=== PATIENT | female | born 1955 | race Two or more races ===

== ENCOUNTER 2025-07-21 04:50 | Inpatient (IN) | payer BC, OTHER ==
[~2025-07-21] VITALS: Ht 160 cm; Wt 54.4 kg
--- NOTE | 2025-07-21 05:12 | NUR ---
[id number] FR HOME W CC OF ABDL PAIN, DISTENTION AND DIARRHEA X 2 WEEKS,+N/V AND HEADACHE. 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 PATIENT IS AOX4, ABLE TO MAKE NEEDS KNOWN. PLACED COMFORTABLY IN BED. WAITING FOR MD MARCIAL
--- NOTE | 2025-07-21 05:15 | NUR ---
SEEN BY DR BADILLO AT BEDSIDE
[2025-07-21] MEDS: IV NS 0.9% 1,000 ML BAG IV ONE ×2 (05:30→08:38)
[2025-07-21] MEDS ORDERED: PANTOPRAZOLE 40 MG VIAL ONE (05:42)
[2025-07-21] MEDS ORDERED: ONDANSETRON HCL/PF 4 MG/2 ML VIAL ONE (05:42)
--- NOTE | 2025-07-21 06:15 | NUR ---
PT HARD STICK; NOT ABLE TO DRAW LABS WILL HAVE ANOTHER NURSE TRY. LAB AWARE
--- NOTE | 2025-07-21 06:30 | NUR ---
called house sup for mid line insertion
--- NOTE | 2025-07-21 06:40 | NUR ---
MID LINE NURSE AT BED SIDE
[2025-07-21 06:43] LABS: PLATELET COUNT (AUTO) 194 K/uL (150-450); RED BLOOD CELL COUNT(AUTO) 4.66 MIL/uL (4.0-5.2); RED CELL DISTRIBUTION WIDTH 16.2 % (11.5-15.0); WHITE BLOOD COUNT (AUTO) 7.3 K/uL (4.3-11.0)
[2025-07-21] MEDS: PANTOPRAZOLE 40 MG VIAL IV ONE (06:55)
[2025-07-21] MEDS: ONDANSETRON HCL/PF 4 MG/2 ML VIAL IV ONE (06:56)
--- NOTE | 2025-07-21 06:56 | NUR ---
ELIZABETH #18G MIDLINE INSERTED BY KAREN DELGADO BLOOD COLLECTED AND SENT TO LAB
--- NOTE | 2025-07-21 07:10 | NUR ---
PT TAKEN TO CT
[2025-07-21 07:15] LABS: CALCIUM, SERUM 8.9 mg/dL (8.5-10.1); CREATININE 0.9 mg/dL (0.6-1.3); SODIUM SERUM 133 mmol/L (136-145); UREA NITROGEN, BLOOD 18 mg/dL (7-18)
[2025-07-21] MEDS ORDERED: DICYCLOMINE HCL INJ 20 MG/2 ML AMPUL IM ONE (07:15)
[2025-07-21] MEDS ORDERED: MORPHINE SULFATE INJ 4 MG/ML DISP.SYRIN ONE (07:15)
[2025-07-21] MEDS: MORPHINE SULFATE INJ 2 MG/ML DISP.SYRIN IV ONE (07:20)
[2025-07-21] MEDS: DICYCLOMINE HCL INJ 20 MG/2 ML AMPUL IM ONE (07:20)
[2025-07-21 07:21] LABS: ALCOHOL, BLOOD 82 mg/dL (0-10); ASPARTATE AMINOTRANSFERASE 47 U/L (15-37); TOTAL PROTEIN, SERUM 7.1 g/dL (6.4-8.2)
--- NOTE | 2025-07-21 07:25 | NUR ---
REPORT GIVEN TO DANY DELGADO
[2025-07-21 07:26] LABS: LACTIC ACID 3.8 mmol/L (0.4-2.0)
[2025-07-21] MEDS ORDERED: PIPERACI/TAZO 3.375GM/D5W 50ML PB IV ONE (08:03)
[2025-07-21] MEDS ORDERED: IOHEXOL-350 100 ML VIAL IV ONE (08:15)
[2025-07-21] MEDS ORDERED: IV NS 0.9% 250 ML IV ONE (08:15)
[2025-07-21] MEDS: PIPERACILLIN /TAZOBACTAM 3.375 G in IV D5W 50 ML IV ONE (08:30)
[2025-07-21] MEDS ORDERED: MAG HYDROX/AL HYDROX/SIMETH 30 ML UDC ONE (09:10)
[2025-07-21] MEDS ORDERED: LIDOCAINE VISCOUS 2% UD 15 ML UDC ONE (09:10)
[2025-07-21] MEDS ORDERED: LORAZEPAM INJ 2 MG/ML VIAL ONE (09:11)
--- NOTE | 2025-07-21 09:15 | NUR ---
report given to Libia DELGADO for ruthie
[2025-07-21] MEDS: MAG HYDROX/AL HYDROX/SIMETH 30 ML UDC PO ONE (09:17)
[2025-07-21] MEDS: LIDOCAINE VISCOUS 2% UD 15 ML UDC MM ONE (09:17)
[2025-07-21] MEDS: LORAZEPAM INJ 2 MG/ML VIAL IV ONE (09:18)
--- NOTE | 2025-07-21 09:28 | NUR ---
CALLED STAT RAD FOR READ
[2025-07-21 10:33] LABS: LACTIC ACID REFLEX 4.0 mmol/L (0.4-1.9)
--- NOTE | 2025-07-21 10:34 | NUR ---
LACTIC 4.0 MANUEL DELGADO AWARE.
[2025-07-21] MEDS ORDERED: Z GUARD REMEDY 4 OZ OINT TP PRN (11:00)
[2025-07-21] MEDS ORDERED: ACETAMINOPHEN 650 MG/SUPP.RECT RC PRN (11:00)
[2025-07-21] MEDS: PANTOPRAZOLE 40 MG VIAL IV SCH (11:13)
[2025-07-21] MEDS: IV D5/ 0.9% NACL 1,000 ML IV PRN (11:16)
[2025-07-21] MEDS: MORPHINE SULFATE INJ 4 MG/ML DISP.SYRIN IV PRN (11:28)
[2025-07-21 11:42] LABS: APPEARANCE,URINE CLEAR (CLEAR); BLOOD, URINE 1+ Ery/uL (NEGATIVE); LEUKOCYTE ESTERASE ,URINE 1+ (NEGATIVE); NITRITE, URINE NEGATIVE (NEGATIVE); UGLUCOSE NEGATIVE (NEGATIVE)
[2025-07-21 12:00] VITALS: BP 184/99; TEMP 97.5; O2SAT 95
[2025-07-21 12:15] LABS: ADD URINE CULTURE YES
[2025-07-21] MEDS: hydrALAZINE HCL IV 20 MG VIAL IV PRN (12:31)
--- NOTE | 2025-07-21 12:57 | NUR ---
SPORTS MEDICINE MASSEUR NOTE RECEIVED REPORT FROM NURSE DANY WHO ACCOMPANIED PT TO UNIT. PT ARRIVED IN [facility], A/O X4, SATURATING 95% ON ROOM AIR, AND ELIZABETH MIDLINE #18G. INTACT, PATENT, AND FLUSHING WELL. IV ACCESS ON RIGHT FINGER REMOVED DUE TO INFILTRATION AND REPORTED BURNING SENSATION. PT VITALS ON ARRIVAL ARE: 97.5 F, HR 103, RR 20, AND 184/99. MD MADE AWARE OF BLOOD PRESSURE AND IV HYDRALAZINE PRN ADMINISTERED ORDERED. SKIN ASSESSMENT COMPLETED AND NO WOUNDS DOCUMENTED. PT IS AMBULATORY WITH ASSISTANCE, HOWEVER PUREWICK WAS PLACED DUE TO FREQUENT URINATION NEEDS. PT AGITATED AND CALLING NURSING LIGHT EXTREMELY FREQUENTLY, HOWEVER NO MEDICAL NEEDS ARE NOTED AT THIS TIME. FLUIDS ARE INFUSING ORDERED AND TOLERATED WELL. PT ON NPO, PER MD ORDER. ALL BELONGINGS CHECKED AND ACCOUNTED FOR BY ROYER ZELAYA. LACTIC ACID 4.0, MADE AWARE. POC ONGOING
[2025-07-21] MEDS ORDERED: PIPERACILLIN /TAZOBACTAM 3.375 G in IV D5W 50 ML IV SCH (13:00)
--- NOTE | 2025-07-21 13:05 | NUR ---
PT TRANSFERRED FROM 117-1 TO 106 DUE TO AGITATION FROM SCREAMING PT NEARBY
--- NOTE | 2025-07-21 13:08 | NUR ---
RN NOTE - WASTING WITNESSED WASTING ATIVAN 1 MG BY MANUEL DELGADO
[2025-07-21] MEDS: LORAZEPAM INJ 2 MG/ML VIAL IV PRN (13:09)
--- NOTE | 2025-07-21 13:12 | NUR ---
ATIVAN ADMINISTERED ORDERED. WASTE WITNESSED BY DANNY CUEVAS
[2025-07-21] MEDS: ZOSYN IVPB 3.375 G in IV D5W 50ml IV SCH (13:58)
--- NOTE | 2025-07-21 14:51 | NUR ---
MD AWARE OF LACTIC ACID 4.0. NO NEW ORDERS. MADE AWARE OF PTS DISCOMFORT AND PAIN, BUT CXR, CTA, AND GALLBLADDER US HAVE STILL NOT BEEN READ. I CALLED RADIOLOGY TO INFORM THEM OF PTS STATUS AND TO EXPEDITE PROCESS, PER MD'S ORDER. RADIOLOGY OKAY-ED. WILL CONTINUE TO MONITOR PT CLOSELY
--- NOTE | 2025-07-21 15:17 | NUR ---
RADIOLOGY REPORT MANUALLY PICKED UP BY ME AND GIVEN TO JOSE D SANTILLAN. JOSE D CAME TO BEDSIDE TO ASSESS AND SPEAK TO PT. CT HEAD W/O CONTRAST ORDERED DUE TO PTS REPORT OF SEVERE HEADACHE DESCRIBED "THE WORST HEADACHE OF HER LIFE". PT TO REMAIN NPO AND CONTINUE ABX REGIMEN UNTIL FURTHER NOTICE ABOUT THE REST OF HER IMAGING RESULTS. PT HAS NO OTHER NEEDS NEEDED AT THIS TIME
[2025-07-21 16:00] VITALS: BP 161/93; TEMP 98.6; O2SAT 94
[2025-07-21] MEDS ORDERED: PIPERACILLIN /TAZOBACTAM 3.375 G in IV D5W 100 ML IV SCH (16:00)
--- NOTE | 2025-07-21 18:42 | NUR ---
CT HEAD UNREMARKABLE. PT REMAINS AGITATED, ANXIOUS, AND IRRITABLE DESPITE MULTIPLE PAIN MEDICATIONS AND ANTIANXIETY. VITALS ARE STABLE. FLUIDS INFUSING ORDERED. NPO EXCEPT ICE CHIPS FOR ORAL GRATIFICATION, PER MD ORDER. PT HAS NO FURTHER MEDICAL NEEDS AT THIS TIME.
--- NOTE | 2025-07-21 18:44 | NUR ---
RN CLOSING NOTE PT IS RESTING IN BED COMFORTABLY. PT IS LESS ANXIOUS WITH THE LIGHTS OFF AND A QUIETER ENVIRONMENT. IV ELIZABETH MIDLINE #18G INFUSING D5NS @ 100ML/HR, TOLERATING WELL. PT HAS A BEDSIDE COMMODE AND INSTRUCTED TO HIT CALL LIGHT FOR ASSISTANCE WHEN SHE NEEDS TO USE IT. PT IS SATURATING 98% ON ROOM AIR, NO SIGNS OF RESPIRATORY DISTRESS. TELE READING NSR HR 90. VITAL SIGNS REMAIN STABLE. SAFEFTY MEASURES IMPLEMENTED AT ALL TIMES PER UNIT PROTOCOL. POC ENDORSED TO ONCOMING NURSE.
[2025-07-21 19:12] LABS: CALCIUM, SERUM 8.2 mg/dL (8.5-10.1); CREATININE 1.0 mg/dL (0.6-1.3); SODIUM SERUM 136.0 mmol/L (136-145); UREA NITROGEN, BLOOD 11.0 mg/dL (7-18)
--- NOTE | 2025-07-21 19:20 | NUR ---
RN OPENING NOTE RECEIVED PT IN BED. PT IS ANXIOUS AND RESTLESS AND REQUESTING MEDICATION THAT MAKES HER CALM. IV ELIZABETH MIDLINE #18G INFUSING D5NS @ 100ML/HR, TOLERATING WELL. PT HAS A BEDSIDE COMMODE. PT IS ON ROOM AIR AND BREATHING EVEN AND UNLABORED, SATURATION 99%. NO SIGNS/S OF RESPIRATORY DISTRESS, DISCOMFORT, AND PAIN NOTED AT THIS TIME. TELE READING NSR HR 92. ALL FALL/ SAFETY MEASURES IN PLACE PER UNIT PROTOCOL. BED LOCKED AND IN THE LOWEST POSITION, CALL LIGHT AND TRAY WITHIN EASY REACH, PLAN OF CARE ONGOING.
--- NOTE | 2025-07-21 19:30 | NUR ---
RN NOTE, ATIVAN 0.5 ML(1 MG) GIVEN TO THE PATIENT DUE TO THE PATIENT RESTLESS ,AND MORNING SHIFT NURSE (LAVELL) WAS THE WITNESS FOR THE WAIST.
[2025-07-21 20:00] VITALS: BP 160/55; TEMP 97.7; O2SAT 98
[2025-07-21] MEDS: ONDANSETRON HCL/PF 4 MG/2 ML VIAL IVP PRN (21:19)
--- NOTE | 2025-07-21 21:20 | NUR ---
RN NOTE, PATIENT COMPLAINS OF NAUSEA AND VOMITING, ZOFRAN 4 MG/2 ML GIVEN PER PRN MD ORDER. PLAN OF CARE ONGOING.
[2025-07-21] MEDS: HYDROMORPHONE 1 MG/1 ML DISP.SYRIN IV PRN (22:55)
--- NOTE | 2025-07-21 22:55 | NUR ---
RN NOTE, PATIENT COMPLAINS OF SEVERE PAIN IN HER STOMACH ON SCALE 10/10, GAVE HER DILAUDID IV @ 22:55.
--- NOTE | 2025-07-21 23:55 | NUR ---
RN NOTE, PT. BLOOD PRESSURE IS 183/88 BPM, HYDRALAZINE WAS GIVEN PER PRN MD ORDER.
[2025-07-22] VITALS (10 sets, daily range): BP systolic 140–185; BP diastolic 79–91; TEMP 97.8–98.4; O2SAT 94–97
--- NOTE | 2025-07-22 01:44 | NUR ---
RN NOTE, PATIENT VERY ANXIOUS, AGITATED, NERVOUS, SHE KEEPS ASKING MEDS TO KEEP HER CALM, GAVE HER ATIVAN 1M PER PRN MD ORDER, AND (JOANN) OTHER CUSTOMER SALES REPRESENTATIVE NURSE WAS WITNESS TO WAIST.
--- NOTE | 2025-07-22 06:44 | NUR ---
RN CLOSING NOTE LEFT PT IN BED. PT SEEMS COMFORTABLE, A/0X3, ABLE TO MAKE ALL NEEDS KNOWN. IV ELIZABETH MIDLINE #18G INFUSING D5NS @ 100ML/HR, TOLERATING WELL. PT HAS A BEDSIDE COMMODE. PT IS ON ROOM AIR AND BREATHING EVEN AND UNLABORED, SATURATION 96%. NO SIGNS/S OF RESPIRATORY DISTRESS, DISCOMFORT, AND PAIN NOTED AT THIS TIME. ALL DUE MEDS WERE GIVEN AND ALL DUE MEDS WERE GIVEN AND ALL NEEDS ATTENDED TO, ON TELE MONITORING. ALL FALL/ SAFETY MEASURES IN PLACE PER UNIT PROTOCOL. BED LOCKED AND IN THE LOWEST POSITION, CALL LIGHT AND TRAY WITHIN EASY REACH, WILL ENDORSE TO THE MORNING SHIFT NURSE TO CONTINUE PLAN OF CARE.
--- NOTE | 2025-07-22 07:15 | NUR ---
RN OPENING NOTES RECEIVED PT IN BED. AWAKE, A/O X3, ABLE TO MAKE NEEDS KNOWN. ON ROOM AIR, TOLERATING WELL, SATING 95%. NO S/S OF SOB NOTED AT THIS TIME. ON TELE MONITOR ST, HR IN THE 120'S. IV ACCESS ON ELIZABETH MIDLINE 18G PATENT AND INTACT, CURRENTLY RUNNING D5NS @ 100ML/HR. PT AMBULATORY WITH STEADY GAIT TO BEDSIDE COMMODE. SAFETY MEASURES IMPLEMENTED, BED IN LOWEST LOCKED POSITION, SIDE RAILS UP X2, CALL LIGHT AND TRAY WITHIN REACH. WILL CONTINUE PLAN OF CARE.
[2025-07-22 07:30] LABS: PLATELET COUNT (AUTO) 124 K/uL (150-450); RED BLOOD CELL COUNT(AUTO) 3.78 MIL/uL (4.0-5.2); RED CELL DISTRIBUTION WIDTH 15.7 % (11.5-15.0); WHITE BLOOD COUNT (AUTO) 4.9 K/uL (4.3-11.0)
[2025-07-22 08:40] LABS: ASPARTATE AMINOTRANSFERASE 34.0 U/L (15-37); CALCIUM, SERUM 8.2 mg/dL (8.5-10.1); CREATININE 0.7 mg/dL (0.6-1.3); PHOSPHORUS 1.9 mg/dL (2.5-4.9); SODIUM SERUM 132.0 mmol/L (136-145); TOTAL PROTEIN, SERUM 6.3 g/dL (6.4-8.2); UREA NITROGEN, BLOOD 7.0 mg/dL (7-18)
[2025-07-22 08:52] LABS: LDL 29.0 mg/dL (0-99)
[2025-07-22] MEDS: Magnesium 1GM/D5W 100ML PREMIX 100 ML IV SCH (09:58)
[2025-07-22] MEDS: Sodium Phosphate 15 MMOL in IV NS 0.9% 245 ML IV SCH (10:43)
--- NOTE | 2025-07-22 12:39 | NUR ---
PT TAKEN TO MRI FOR MRCP WO CONTRAST.
--- NOTE | 2025-07-22 12:47 | NUR ---
PT BROUGHT BACK TO ROOM, PT REFUSING TO DO MRI, STATES SHE DOESN'T WANT TO DO IT ANYMORE AND SHE JUST WANTS TO BE ABLE TO EAT AND DRINK. HOSPITALIST JOSE D HIGGINS NOTIFIED.
--- NOTE | 2025-07-22 12:50 | NUR ---
patient is refusing/confused
--- NOTE | 2025-07-22 12:50 | NUR ---
PER JOSE D GIVE 1 MG ATIVAN BEFORE MRI.
[2025-07-22] MEDS: LORAZEPAM INJ 2 MG/ML VIAL IV ONE (13:09)
--- NOTE | 2025-07-22 13:15 | NUR ---
ATIVAN GIVEN AND PT TAKEN TO MRI FOR MRCP WO CONTRAST.
--- NOTE | 2025-07-22 14:52 | NUR ---
PATIENT REFUSED TO WEAR TELEMETRY. JOSE D HIGGINS NP MADE AWARE.
[2025-07-22] MEDS: MORPHINE SULFATE INJ 4 MG/ML DISP.SYRIN IV PRN (15:04)
--- NOTE | 2025-07-22 15:09 | NUR ---
MRSCP RESULT RELAYED TO JOSE D HIGGINS NP AND DR. FARIAS.
--- NOTE | 2025-07-22 17:00 | NUR ---
ORDER FOR HIDA SCAN, SPOKE TO NUCLEAR MED, ENDORSED THAT PT WISHES TO EAT DINNER AND RECEIVED MORPHINE LAST @ 1504, PER NUCLEAR MED, WILL DO HIDA SCAN TOMORROW, PT TO BE NPO AFTER MIDNIGHT AND NO MORPHINE/DILAUDID AFTER MIDNIGHT D/T CONTRAINDICATIONS WITH SCAN. WILL ENDORSE TO ONCOMING SHIFT.
[2025-07-22] MEDS: ACETAMINOPHEN 325 MG TABLET PO PRN (17:09)
--- NOTE | 2025-07-22 18:33 | NUR ---
RN CLOSING NOTES PT IN BED. AWAKE, A/O X3, ABLE TO MAKE NEEDS KNOWN. ON ROOM AIR, TOLERATING WELL, SATING 96%. NO S/S OF SOB NOTED AT THIS TIME. PT REFUSING TELE MONITORING AT THIS TIME, HOSPITALIST AWARE. IV ACCESS ON ELIZABETH MIDLINE 18G, PATENT AND INTACT, CURRENTLY RUNNING D5NS @ 100ML/HR. PT AMBULATORY WITH STEADY GAIT TO BEDSIDE COMMODE. PT TO BE NPO AFTER MIDNIGHT FOR HIDA SCAN TOMORROW. SAFETY MEASURES IMPLEMENTED, BED IN LOWEST LOCKED POSITION, SIDE RAILS UP X2, CALL LIGHT AND TRAY WITHIN REACH. ALL MEDS GIVEN ORDERED, ALL NEEDS ATTENDED TOO. WILL ENDORSE TO ONCOMING SHIFT FOR LEIGH.
--- NOTE | 2025-07-22 19:26 | NUR ---
MAILROOM COORDINATOR OPENING NOTE RECEIVED PATIENT IN BED, AWAKE, A/O X3, APPEARS ANXIOUS BUT COOPERATIVE. VERBALIZES NEEDS AND WANTS, REPORTED 10/10 ABDOMINAL PAIN, MORPHINE 4MG GIVEN ORDERED. STABLE ON ROOM AIR, TOLERATING WELL, WITH SPO2 96%. RECEIVED PATIENT WITHOUT EXTERNAL TELE MONITOR D/T REFUSAL, AWARE PER DAY SHIFT RN. OFFERED TO PLACE MONITOR ON, ADAMANTLY REFUSED "THAT'S NOT MINE, I DO NOT NEED THAT". WITH IV ACCESS ON ELIZABETH MIDLINE #18G, INTACT AND PATENT, INFUSING D5NS AT 100ML/HR, TOLERATING WELL. ON CLEAR LIQUID DIET, REINFORCED ORDER FOR NPO AFTER MIDNIGHT TONIGHT FOR HIDA SCAN PROCEDURE TOMORROW, VERBALIZED UNDERSTANDING. PATIENT ABLE TO AMBULATE WITH STEADY GAIT FOR BRPS. SAFETY MEASURES IMPLEMENTED PER UNIT PROTOCOL. WILL CONTINUE WITH ONGOING PLAN OF CARE.
--- NOTE | 2025-07-22 20:04 | NUR ---
RN NOTE PATIENT C/O FEELING AGITATED AND ANXIOUS, ATIVAN 1MG IVP GIVEN ORDERED PRN. ATIVAN 1 MG WASTED WITH SALMA DELGADO PRESENT.
[2025-07-23] VITALS: BP 146/85; TEMP 98.4; O2SAT 95
[2025-07-23 04:00] VITALS: BP 156/79; TEMP 98.2; O2SAT 97
--- NOTE | 2025-07-23 04:05 | NUR ---
RN NOTE PATIENT C/O FEELING ANXIOUS, ATIVAN 1MG IVP GIVEN ORDERED PRN. ATIVAN 1 MG WASTED WITH PRINCESS DELGADO PRESENT.
[2025-07-23 04:20] VITALS: BP 158/82; TEMP 98.4; O2SAT 97
--- NOTE | 2025-07-23 04:27 | NUR ---
RN NOTE CALLED CLARITZA KAN NP, HOSPITALIST ON DUTY, RELAYED PATIENT'S DEMAND TO GO AMA IF NOT GIVEN MORPHINE IV OR ANY STRONG PO PAIN MEDICATION, REMINDED HOSPITALIST THAT PATIENT IS SCHEDULED FOR HIDA SCAN THIS MORNING, SHE'S CURRENTLY ON NPO AND ATIVAN 1MG GIVEN IVP AT 0405H. WINIFRED KAN SAID "IF PATIENT IS ALERT/ORIENTED X3 AND IS NOT SUICIDAL, SHE CAN GO AMA". CALLED SECURITY TO ESCORT OUT PATIENT SAFELY.
--- NOTE | 2025-07-23 04:40 | NUR ---
RN NOTE PATIENT SIGNED AMA AFTER EXPLAINING TO HER BY 2 RNS THAT SHE CANNOT TAKE THE MORPHINE 4 MG D/T SCHEDULED HIDA SCAN PROCEDURE THIS MORNING, MORPHINE LISTED CONTRAINDICATED. "I AM GOING COZ YOU WILL NOT SHOOT ME ANY MORE DRUGS ANYWAYS". PERIPHERAL IV ON ELIZABETH DISCONTINUED, NO BLEEDING NOTED. ALL BELONGINGS TAKEN AND SIGNED BELONGINGS LIST. PATIENT ESCORTED AND ASSISTED OUT FROM THE UNIT BY 3 SECURITY GUARDS.
--- NOTE | 2025-07-23 06:11 | NUR ---
TEXTED GUEVARA VANEGAS IN REGARDS TO HIDIA SCAN.
== END 2025-07-23 04:40 | disposition left against medical advice (07) | DRG 872 ==
LOC: ER 04:55 → TELE1 08:51
PROVIDERS: ADMIT Nurse Practitioner Acute Care; ATTEND Nurse Practitioner Acute Care
DX: A41.9 Sepsis, unspecified organism (principal); E87.20 Acidosis, unspecified; E83.39 Other disorders of phosphorus metabolism; N39.0 Urinary tract infection, site not specified; B96.89 Other specified bacterial agents as the cause of diseases classified elsewhere; I10 Essential (primary) hypertension; G40.909 Epilepsy, unspecified, not intractable, without status epilepticus; K76.0 Fatty (change of) liver, not elsewhere classified; E87.1 Hypo-osmolality and hyponatremia; K80.50 Calculus of bile duct without cholangitis or cholecystitis without obstruction; F19.90 Other psychoactive substance use, unspecified, uncomplicated; Z79.899 Other long term (current) drug therapy; E87.5 Hyperkalemia; E86.0 Dehydration; E83.42 Hypomagnesemia; G89.4 Chronic pain syndrome; R79.89 Other specified abnormal findings of blood chemistry; R51.9 Headache, unspecified
CPT/HCPCS: 36415; 70450-TC; 71045-TC; 74181-TC; 76705-TC; 80048-TC; 80053-TC; 80061-TC; 80076-TC; 81001; 82248-TC; 83605-TC; 83690-TC; 83735-TC; 84100-TC; 85025-TC; 93307-TC; A4223; A9563; G0378; G0480; J0360; J0500; J1171; J2060; J2270; J2405; J2470; J2543; J3475; J7030; J7040; J7042; J7050; J7060; Q9967